=== PATIENT | female | born 1945 | race Caucasian/White ===

== ENCOUNTER 2023-08-11 12:15 | Outpatient (CLI) | payer OTHER ==
[~2023-08-11 12:15] MED LIST: ATENOLOL50 MG; [UNRECOGNIZED DRUG - OTHER] OTIC
== END 2023-08-11 12:18 | disposition home or self-care (01) ==
LOC: SONOGRAMA 12:15
PROVIDERS: ATTEND Pathology Anatomic Pathology & Clinical Pathology
DX: D34 Benign neoplasm of thyroid gland (principal); E06.3 Autoimmune thyroiditis; E04.1 Nontoxic single thyroid nodule